=== PATIENT | female | born 1990 | race African-American/Black ===

== ENCOUNTER 2023-11-03 03:50 | Emergency (ER) | payer MEDICAID ==
[~2023-11-03] VITALS: Ht 162.6 cm; Wt 113.6 kg
[2023-11-03 03:57] VITALS: BP 123/78; RESP 16; O2SAT 95
[2023-11-03 04:13] LABS: Basophils % (auto) 0.4 % (0.0-2.0); Eosinophils # (auto) 0.1 10 ^3/uL (0-0.8); Hemoglobin 10.9 g/dL (12.2-16.2); Nucleated Red Blood Cells % 0.1 %
[2023-11-03 04:15] LABS: Basophils # (auto) 0 10 ^3/uL (0-0.2); Eosinophils % (auto) 0.7 % (0.0-7.0); Hematocrit 34.4 % (36.0-46.0); Lymphocytes # (auto) 3.7 10 ^3/uL (0.4-5.4); Lymphocytes % (auto) 30.4 % (10.0-50.0); Mean Corpuscular Hemoglobin 24.5 pg (28.0-32.0); Mean Corpuscular Hgb Conc. 31.7 g/dL (32.0-36.0); Mean Corpuscular Volume 77.3 fL (80.0-100.0); Monocytes # (auto) 0.6 10 ^3/uL (0-1.3); Monocytes % (auto) 5.2 % (0.0-12.0); Neutrophils # (auto) 7.6 10 ^3/uL (1.6-8.6); Neutrophils % (auto) 63.3 % (37.0-80.0); Red Blood Cells 4.45 10^6/uL (4.0-5.20); Red Cell Distribution Width 15.9 % (11.8-14.3)
[2023-11-03 04:27] LABS: Alanine Aminotransferase 20 U/L (7-40); Alkaline Phosphatase 124 U/L (46-116); Anion Gap 9 (5-15); Calcium 8.7 mg/dL (8.7-10.4); Carbon Dioxide 24 mmol/L (20-30); Chloride 108 mmol/L (98-107); Glucose 107 mg/dL (74-106); Magnesium 1.6 mg/dL (1.6-2.6); Potassium 3.8 mmol/L (3.5-5.1); Sodium 141 mmol/L (136-145)
[2023-11-03 04:28] LABS: Albumin 3.9 g/dL (3.2-4.8); Aspartate Aminotransferase 15 U/L (13-40); BUN/Creatinine Ratio 7.3 (10.0-20.0); Bilirubin, Total 0.2 mg/dL (0.2-1.0); Blood Urea Nitrogen 7 mg/dL (9-23); Total Protein 6.9 g/dL (5.7-8.2)
[2023-11-03] MEDS ORDERED: ASPirin 325 MG TAB PO ONE (04:45)
[2023-11-03 05:41] VITALS: PULSE 76
== END 2023-11-03 07:38 | disposition left against medical advice (07) ==
LOC: ER 03:50
DX: R07.89 Other chest pain (principal); R10.2 Pelvic and perineal pain
CPT/HCPCS: 36415; 71045; 80053; 83735; 83880; 84484; 84702; 85025; 85379; 93005

== ENCOUNTER 2023-11-27 01:32 | Emergency (ER) | payer MEDICAID ==
[~2023-11-27] VITALS: Ht 162.6 cm; Wt 114.5 kg
[2023-11-27 02:09] VITALS: BP 120/79; RESP 18; O2SAT 96
[2023-11-27 02:18] VITALS: PULSE 70
[2023-11-27 03:04] LABS: Urine Bacteria NONE SEEN /hpf (None Seen); Urine Blood Negative /uL (Negative); Urine Clarity Clear (Clear); Urine Color Yellow (Yellow); Urine Mucus FEW (None Seen); Urine Protein, UAD Negative (Negative); Urine Specific Gravity 1.025 (1.001-1.035); Urine Urobilinogen Normal (Negative); Urine WBC 3 /hpf (0 - 5); Urine pH 5.5 (5.0-8.0)
[2023-11-27] MEDS: HYDROcodone-ACET 10/325MG TAB PO ONE (04:23)
[2023-11-27] MEDS ORDERED: ACET-6 PO (05:21)
== END 2023-11-27 06:33 | disposition still patient (30) ==
LOC: ER 01:32
DX: N39.0 Urinary tract infection, site not specified (principal); M25.551 Pain in right hip; G89.29 Other chronic pain
CPT/HCPCS: 81001; 82962; 93005

== ENCOUNTER 2025-07-02 13:49 | Emergency (ER) | payer MEDICAID ==
[~2025-07-02] VITALS: Ht 162.6 cm; Wt 121.9 kg
[~2025-07-02 13:49] MED LIST: ACET-6 PO
[2025-07-02 13:51] VITALS: BP 126/73; PULSE 83; RESP 18; TEMP 98.2; O2SAT 97
[2025-07-02 14:52] LABS: Hematocrit 28.9 % (36.0-46.0); Hemoglobin 8.9 g/dL (12.2-16.2); Mean Corpuscular Hemoglobin 20.2 pg (28.0-32.0); Mean Corpuscular Volume 65.6 fL (80.0-100.0); Nucleated Red Blood Cells % 0.0 %
[2025-07-02 15:00] LABS: Sodium 142 mmol/L (136-145)
[2025-07-02 15:01] LABS: Anion Gap 7 (5-15); Carbon Dioxide 27 mmol/L (20-31)
[2025-07-02 15:03] LABS: Calcium 8.7 mg/dL (8.7-10.4); Chloride 108 mmol/L (98-107); Potassium 3.4 mmol/L (3.5-5.1)
[2025-07-02 15:06] LABS: BUN/Creatinine Ratio 8.4 (10.0-20.0); Glucose 95 mg/dL (74-106)
[2025-07-02 15:11] LABS: Blood Urea Nitrogen 7 mg/dL (9-23)
[2025-07-02 16:15] LABS: Ovalocytes FEW
[2025-07-02] MEDS ORDERED: ONDANSETRON HCL 4 MG/2 ML VIAL IV ONE (16:15)
[2025-07-02] MEDS ORDERED: MORPHINE SULFATE 4 MG/ML SYR/VIAL IV ONE (16:15)
[2025-07-02] MEDS ORDERED: SODIUM CHLORIDE 0.9% 2,000 ML IV ONE (16:15)
--- NOTE | 2025-07-02 16:24 | ED.PDOC ---
GI ASSESSMENT HPI Comments 35y F with a history of breast and cervical cancer in remission presents to the ED for chief complaint of lower abdominal pain. Pt states she has been having lower abdominal/pelvic pain for the past 2x weeks. Pt states the pain is intermittent, cramping in nature, with no associated exacerbating or relieving factors Pt also notes associated nausea and vomiting and states she has not been able to tolerate any food or liquids for the past 2 days. Pt also notes vaginal spotting for the past 3x days. She states her last normal menstrual period was 06/18/2025. Denies fever, diarrhea, constipation or dysuria. Pt otherwise has noted stable vitals with temp 98.2 F, rr 18, heart rate 83 and BP of 126/73. Pt otherwise denies any other symptoms at this time. Patient is requesting a blood test, stating that with previous pregnancies, she has never had a positive urine test, and has always had to be confirmed with a blood test in the past. Chief Complaint: Pelvic Pain Time Seen by MD: 16:21 Primary Care Provider: Corrie Jackson Reviewed Notes: Medications, Allergies Allergies: Coded Allergies: NO KNOWN ALLERGIES (Unverified , 08/08/13) Home Meds Active Scripts Acetaminophen (Acetaminophen Extra Stren) 500 Mg Tab, 1000 MG PO TIDPRN PRN for 10 Days, #60 TAB Prov:KARIN PHILLIPS DO 11/27/23 Information Source: Patient Mode of Arrival: Ambulatory Past Medical History PAST MEDICAL HISTORY: Cancer Past Medical History (Other): cervical and breast cancer, both in remission Surgical History (Other): Cervical surgery, R knee surgery [employer] History: Cervical Cancer, Spontaneous 4 Para 2 AB 2 Family History Family History: Unknown Social History Smoker: Non-Smoker Alcohol: Denies ETOH Use Drugs: Denies Drug Use Lives In: Home All Other Systems: Reviewed and Negative (see HPI) Physical Exam General Appearance: No Apparent Distress, Obese HEENT: Other (Pupils and face symmetric. Moist mucous membranes.) Neck: Full Range of Motion, Normal Inspection Respiratory: Lungs Clear, No Accessory Muscle Use, No Respiratory Distress, Normal Breath Sounds Cardiovascular: No Edema, No JVD, Regular Rate/Rhythm Breast Exam: Deferred Gastrointestinal: LLQ, RLQ, Soft, Suprapubic, Tenderness Genitalia: Deferred Pelvic: Deferred Rectal: Deferred Extremities: Normal inspection, Normal range of motion, Non-tender, No pedal edema Neurologic: Alert (Oriented x4), Normal Affect, Normal Mood, Other (Ambulatory) Cerebellar Function: NOT DONE Reflexes: NOT DONE Skin: Dry, Normal Color, Warm Lymphatic: NOT DONE Was a procedure done? Was a procedure done?: No GI differential Dx Differential Diagnosis: Incomplete , Threatened , Constipation, Diverticular disease, Ectopic , Gastroenteritis, Inflammatory BD, Ovarian cyst/torsion, PID, UTI, Urolithiasis, Electrolyte Imbalance, , Bacterial, Viral, Hypovolemia, Stress Ulcer X-Ray, Labs, Meds, VS Vital Signs Date Time Temp Pulse Resp B/P (MAP) Pulse Ox O2 Delivery O2 Flow Rate FiO2 07/02/25 13:51 98.2 83 18 126/73 97 98.2 Lab Test 07/02/25 14:39 07/02/25 14:26 Range/Units White Blood Count 9.5 4.4-10.8 10^3/uL Red Blood Count 4.40 4.0-5.20 10^6/uL Hemoglobin 8.9 L 12.2-16.2 g/dL Hematocrit 28.9 L 36.0-46.0 % Mean Corpuscular Volume 65.6 L 80.0-100.0 fL Mean Corpuscular Hemoglobin 20.2 L 28.0-32.0 pg Mean Corpuscular Hemoglobin Concent 30.8 L 32.0-36.0 g/dL Red Cell Distribution Width 18.7 H 11.8-14.3 % Platelet Count 330 140-450 10^3/uL Mean Platelet Volume 8.5 6.9-10.8 fL Neutrophils (%) (Auto) 71.4 37.0-80.0 % Lymphocytes (%) (Auto) 21.6 10.0-50.0 % Monocytes (%) (Auto) 5.4 0.0-12.0 % Eosinophils (%) (Auto) 1.3 0.0-7.0 % Basophils (%) (Auto) 0.3 0.0-2.0 % Neutrophils # (Auto) 6.8 1.6-8.6 10 ^3/uL Lymphocytes # (Auto) 2.0 0.4-5.4 10 ^3/uL Monocytes # (Auto) 0.5 0-1.3 10 ^3/uL Eosinophils # (Auto) 0.1 0-0.8 10 ^3/uL Basophils # (Auto) 0 0-0.2 10 ^3/uL Nucleated Red Blood Cells 0.0 % Platelet Estimate Adequate Large Platelets Few Hypochromasia (manual) Marked Microcytosis Marked Ovalocytes Few Sodium Level 142 136-145 mmol/L Potassium Level 3.4 L 3.5-5.1 mmol/L Chloride Level 108 H 98-107 mmol/L Carbon Dioxide Level 27 20-31 mmol/L Anion Gap 7 5-15 Blood Urea Nitrogen 7 L 9-23 mg/dL Creatinine 0.83 0.550-1.02 mg/dL Glomerular Filtration Rate Calc 95 >90 mL/min BUN/Creatinine Ratio 8.4 L 10.0-20.0 Serum Glucose 95 74-106 mg/dL Calcium Level 8.7 8.7-10.4 mg/dL Beta HCG, Quantitative 0.1 L 1.5-4.2 mIU/mL Urine Color Yellow Yellow Urine Clarity Clear Clear Urine pH 6.0 5.0-9.0 Urine Specific [place] 1.026 1.001-1.035 Urine Protein Negative Negative Urine Ketones Negative Negative Urine Blood Negative Negative /uL Urine Nitrite Negative Negative Urine Bilirubin Negative Negative Urine Urobilinogen 4 H Negative mg/dL Urine Leukocyte Esterase Negative Negative /uL Urine RBC 1 0 - 4 /hpf Urine Microscopic WBC 1 0-5 /HPF Urine Squamous Epithelial Cells Few <5 /hpf Urine Bacteria None seen None Seen /hpf Urine Mucus Few None Seen Urine Glucose Normal Normal mg/dL Urine Test Negative Negative X-Ray, Labs, Meds, VS Comment 35-year-old female with a history of breast and cervical cancer in remission complaining of lower abdominal pain, nausea, vomiting and vaginal spotting Vitals unremarkable Exam remarkable for lower abdominal tenderness to palpation Rhythm strip independently interpreted by me: Sinus rhythm, rate 83, no ectopy. Pelvic ultrasound and CT abdomen and pelvis were ordered, however the patient was called multiple times and did not answer CBC remarkable for mild anemia, BMP remarkable for potassium 3.4, serum quantitative hCG 0.1, UA unremarkable, urine negative The following was ordered for the patient in the ED: 1 L 0.9 normal saline IV bolus, morphine 4 mg IV, Zofran 4 mg IV Patient was called multiple times for imaging studies and for re-evaluation without answer. It was assumed the patient had eloped from the ED. Time of 1ST Reevaluation: 21:30 Reevaluation 1ST: N/A Patient Education/Counseling: Diagnosis, Treatment Family Education/Counseling: No Family Present SEPSIS Sepsis Screen Date sepsis recognized/suspect: Jul 02, 2025 Time Sepsis recognized/suspect: 1351 Recent Procedure: No On Antibiotic Therapy: No Respiratory Rate >20: No Heart Rate >90: No Temp<36 C (96.8 F) or >38.3 C: No SBP <90 or MAP <65 mmHG: No New Acute Mental Status Change: No Is the patient on CPAP, BIPAP,: No Physician Orders Pelvic (07/02/25 19:01) Ct Ab Pel Wo Con-No Oral Or Iv (07/02/25 19:01) Vital Signs Date Time Temp Pulse Resp B/P (MAP) Pulse Ox O2 Delivery O2 Flow Rate FiO2 07/02/25 13:51 98.2 83 18 126/73 97 98.2 Laboratory Tests Test 07/02/25 14:39 White Blood Count 9.5 10^3/uL (4.4-10.8) Departure 1 Departure Time of Disposition: 21:30 Impression: Primary Impression: Lower abdominal pain Additional Impressions: Nausea and vomiting Vaginal spotting Disposition: 07 LEFT AWOL/ELOPED Condition: Fair Critical Care Note Critical Care Time?: No Stability Stability form required: No Heart Score Heart Score: Heart Score Response (Comments) Value History N/A 0 EKG N/A 0 Age N/A 0 Risk Factors N/A 0 Troponin N/A 0 Total 0 I personally scribed for AZUL ELLISON MD ([email or web address]) on 07/02/25 at 16:24. Electronically submitted by Amanda Claudio ([facility] [place]). AZUL ELLISON MD Jul 02, 2025 16:24
[2025-07-02 20:05] LABS: Urine Protein, UAD Negative (Negative)
== END 2025-07-02 21:31 | disposition left against medical advice (07) ==
LOC: ER 13:49
DX: O20.9 Hemorrhage in early pregnancy, unspecified (principal); R10.30 Lower abdominal pain, unspecified; R11.2 Nausea with vomiting, unspecified; N39.3 Stress incontinence (female) (male); Z3A.00 Weeks of gestation of pregnancy not specified
CPT/HCPCS: 36415; 80048; 81001; 81025; 84702; 85025